=== PATIENT | male | born 1960 | race Caucasian/White ===

== ENCOUNTER 2016-05-24 08:56 | Inpatient (IN) ==
[2016-05-24] MEDS ORDERED: G.I. COCKTAIL PO ONE (10:28)
[2016-05-24] MEDS ORDERED: NS 1,000 ML IV ONE (10:28)
[2016-05-24] MEDS ORDERED: SODIUM CHLORIDE 0.9% INJ ONE ×2 (10:29→15:19)
[2016-05-24] MEDS ORDERED: PROTONIX IV ONE (10:29)
--- NOTE | 2016-05-24 10:33 | PROVIDER DOCUMENTATION ---
HPI-General Adult - General Chief Complaint: General Adult Stated Complaint: PANCREAS PX Time Seen by Provider: 05/24/16 10:07 Source: patient Allergies/Adverse Reactions: Patient Allergies Allergy/AdvReac Type Severity Reaction Status Date / Time No Known Allergies Allergy Verified 05/24/16 09:12 Home Medications: Pantoprazole [Protonix] 40 mg PO DAILY 05/24/16 - History of Present Illness -Gen Adult Nature of Presenting Problems: Pt. is 56 yom that presents with c/o epigastric pain and states it is his pancreas. Pt. reports he has chronic pancreas problems and this has been going on for three days this episode. Pt. reports he lives in [place] but is here visiting a relative. Pt. states the pain is burning and he denies any N/V or fever. Location of Pain/Injury: reports: abdomen. denies: head, face, mouth, neck, chest, upper extremity, hand(s), back, pelvis, genitalia, lower extremity, feet , upper body, lower body, generalized Pain Radiation: reports: epigastric Quality of Pain: reports: burning. denies: aching, cramping, dull, fullness, indigestion, pressure, sharp, stabbing, tearing, throbbing, tightness Severity: reports: moderate. denies: mild, severe Onset/Duration: reports: gradual, 3 days ago Timing: reports: still present, constant. denies: improving, gone now, resolved prior to arrival, intermittent, changing over time, getting worse Context/Activities at Onset: reports: none. denies: recent emotional stress, recent physical stress, recent trauma history, possible bad food, cold exposure , out of country travel Modifying Factors: improves with: nothing Associated Symptoms: reports: heartburn. denies: anxiety, arm pain, back/neck pain, chest pain, constipation, cough, diaphoresis, diarrhea, dizziness, EENT symptoms, fatigue, fever/chills, genitourinary problems, headaches, joint pain, loss of appetite, malaise, muscle aches, sinus congestion/drainage, nausea, rash , seizure, shortness of breath, sensory/motor loss, pain with inspiration, swelling/mass in abdomen, syncope, vomiting, weakness, trouble walking Similar Symptoms Previously?: Yes Recently seen or treated by another doctor?: No Review of Systems - Adult - REVIEW OF SYSTEMS - ADULT Constitutional: reports: see HPI. denies: chills, fever, fatique Eyes: reports: see HPI. denies: discharge, blurred vision, double vision Ears, Nose, Mouth & Throat: reports: see HPI. denies: ear discharge, ear pain, hearing loss, nose pain, loose teeth, mouth/dental pain, throat pain, throat swelling Cardiovascular: reports: see HPI. denies: chest pain, irregular heart rate, orthopnea, syncope Respiratory: reports: see HPI. denies: chronic cough, cough, dyspnea on exertion, pleurisy, shortness of breath, wheezing Gastrointestinal: reports: see HPI, abdominal pain. denies: hematemesis, constipation, difficulty swallowing, frequent heartburn, nausea, vomiting Genitourinary: reports: see HPI. denies: dysuria, discharge, frequent UTI's, hematuria, hesitency, urgency Musculoskeletal: reports: see HPI. denies: bone pain, joint pain, joint swelling, muscle aches, neck pain Integumentary: reports: see HPI. denies: hives, itching, rash, skin thickening Neurological: reports: see HPI. denies: ataxia, dizziness/vertigo, headache/ migraines, numbness, seizure, tremors Psychiatric: reports: see HPI. denies: anxiety, depression, emotional problems , insomnia, panic attacks, suicidal thoughts Past History - Adult - PAST MEDICAL HISTORY-ADULT Review of Records: reports: Old Records Reviewed, Nursing Assessment Review, Medications Reviewed, Social history reviewed & non-contributory. Physical Exam-General - PHYSICAL EXAM-ADULT Initial Vital Signs Reviewed: Yes - CONSTITUTIONAL General Appearance: alert, mild distress, thin. negative: obese, anxious, lethargic, slow to respond, obtunded, combative - EYES Eyes: PERRL/EOMI, pink conjunctivae. negative: conjuctival exudate, photophobia , subconjunctival hemorrhage - HEAD, EARS, NOSE, MOUTH & THROAT HENMT: normocephalic/atraumatic, moist mucous membranes. negative: angioedema, frontal tenderness, maxillary tenderness - NECK Neck: non-tender, full range of motion, supple, normal inspection. negative: lymphadenopathy, trachial deviation, thyromegaly - RESPIRATORY Respiratory: lungs clear, normal breath sounds. negative: crackles, rales, rhonchi, stridor, wheezing - CARDIOVASCULAR Cardiovascular: normal peripheral pulses, regular rate, rhythm, no edema, no JVD , no murmur. negative: extra beats, friction rub, irregularly irregular - CHEST (BREASTS) Chest/Breast: deferred - GASTROINTESTINAL (ABDOMEN) Abdominal Exam: normal bowel sounds, soft, tenderness (epigastric). negative: distended, guarding, rigid, rebound, hernia, mass - GENITOURINARY Male Genitalia: deferred Rectal Exam: deferred Hemoccult Exam: deferred - LYMPHATIC Lymphatic: no adenopathy. negative: axilla node tender, cervical node tenderness - MUSCULOSKELETAL Back Exam: normal inspection, no CVA tenderness, no vertebral tenderness. negative: ecchymosis, muscle spasm, vertebral tenderness Extremity: normal range of motion, non-tender, normal gait, normal inspection. negative: deformity, erythema, inflammation, swelling, tenderness Peripheral Pulses: radial (R): 2+, radial (L): 2+ - SKIN Integumentary: normal color, normal turgor, warm/dry. negative: cyanosis, diaphoresis, ecchymosis, erythema, jaundice, mottled, pallor, petechiae, purpura , rash, swelling, tenderness - NEUROLOGIC Neurologic: grossly normal, no motor/sensory deficits. negative: aphasia, facial droop, focal weakness, motor weakness, sensory deficit - PSYCHIATRIC Psych/Mental Status: normal mood/affect, normal thought content, normal thought process, oriented x 3. negative: anxious, paranoid, tearful Progress - PLAN OF CARE/RESULTS Progress/Plan/Lab Results: Discussed results and plan of care with patient. Patient agrees with plan and verbalizes understanding. Vital Signs Temp Pulse Resp BP Pulse Ox 05/24/16 09:09 98.0 F 100 H 18 150/85 97 No Known Allergies Allergy (Verified 05/24/16 09:12) Pantoprazole [Protonix] 40 mg PO DAILY 05/24/16 Laboratory 05/24/16 05/24/16 05/24/16 10:54 10:54 10:50 WBC RBC Hgb Hct MCV MCH MCHC RDW Std Deviation Plt Count MPV Immature Gran % (Auto) Neut % (Auto) Lymph % (Auto) [place] % (Auto) Eos % (Auto) Baso % (Auto) Immature Gran # (Auto) Neut # (Auto) Lymph # (Auto) [place] # (Auto) Eos # (Auto) Baso # (Auto) Sodium 140 Potassium 4.0 Chloride 104 Carbon Dioxide 28 Anion Gap 8 BUN 8 Creatinine 0.7 Estimated GFR/1.73 m2 > 60 BUN/Creatinine Ratio 11 Glucose 113 H Calculated Osmolality 279 Calcium 9.1 Total Bilirubin 0.30 AST 10 ALT 9 L Alkaline Phosphatase 78 Total Protein 7.3 Albumin 3.9 Globulin 3.0 Albumin/Globulin Ratio 1.0 Amylase 142 Lipase 139 H Urine Source CLEAN CATCH Urine Color YELLOW Urine Clarity CLEAR Urine pH 6.5 Ur Specific [place] 1.015 Urine Protein TRACE A Urine Ketones NEGATIVE Urine Blood 2+ A Urine Nitrite NEGATIVE Urine Bilirubin NEGATIVE Urine Urobilinogen NORMAL Urine Microscopic RBC <10 Urine WBC TRACE A Urine Microscopic WBC 5-10 Ur Epithelial Cells <10 Urine Bacteria 1+ Urine Glucose NEGATIVE Urine Opiates Screen NONE DETECTED Ur Oxycodone Screen NONE DETECTED Urine Methadone Screen NONE DETECTED Ur Barbituates Screen NONE DETECTED Ur Tricyclics Screen NONE DETECTED Ur Phencyclidine Scrn NONE DETECTED Ur Amphetamines Screen NONE DETECTED U Methamphetamines Scrn NONE DETECTED Urine MDMA Screen NONE DETECTED U Benzodiazepines Scrn NONE DETECTED Urine Cocaine Screen NONE DETECTED U Cannabinoids Screen NONE DETECTED 05/24/16 10:50 WBC 12.32 H RBC 5.02 Hgb 15.8 Hct 47.0 MCV 93.6 MCH 31.5 H MCHC 33.6 RDW Std Deviation 13.7 Plt Count 299 MPV 10.1 Immature Gran % (Auto) 0.2 Neut % (Auto) 81.0 H Lymph % (Auto) 11.5 L [place] % (Auto) 5.5 Eos % (Auto) 1.5 Baso % (Auto) 0.3 Immature Gran # (Auto) 0.02 Neut # (Auto) 9.98 H Lymph # (Auto) 1.42 [place] # (Auto) 0.68 H Eos # (Auto) 0.18 Baso # (Auto) 0.04 Sodium Potassium Chloride Carbon Dioxide Anion Gap BUN Creatinine Estimated GFR/1.73 m2 BUN/Creatinine Ratio Glucose Calculated Osmolality Calcium Total Bilirubin AST ALT Alkaline Phosphatase Total Protein Albumin Globulin Albumin/Globulin Ratio Amylase Lipase Urine Source Urine Color Urine Clarity Urine pH Ur Specific [place] Urine Protein Urine Ketones Urine Blood Urine Nitrite Urine Bilirubin Urine Urobilinogen Urine Microscopic RBC Urine WBC Urine Microscopic WBC Ur Epithelial Cells Urine Bacteria Urine Glucose Urine Opiates Screen Ur Oxycodone Screen Urine Methadone Screen Ur Barbituates Screen Ur Tricyclics Screen Ur Phencyclidine Scrn Ur Amphetamines Screen U Methamphetamines Scrn Urine MDMA Screen U Benzodiazepines Scrn Urine Cocaine Screen U Cannabinoids Screen Orders Category Date Time Status Saline Loc NOW Care 05/24/16 10:[address] ABD/PELVIS W/ IV CONT ONLY [CT] Stat Exams 05/24/16 13:02 Ordered ALCOHOL BLOOD Stat Lab 05/24/16 13:02 Ordered AMYLASE [CHEM] Stat Lab 05/24/16 10:50 Completed CBC WITH ELECTRONIC DIFF [HEME] Stat Lab 05/24/16 10:50 Completed COMPREHENSIVE METABOLIC PANEL [CHEM] Stat Lab 05/24/16 10:50 Completed LIPASE [CHEM] Stat Lab 05/24/16 10:[address] [URINALYSIS] Stat Lab 05/24/16 10:54 Completed URINE DRUG SCREEN PL Stat Lab 05/24/16 10:54 Completed URINE MICROSCOPIC [URINALYSIS] Stat Lab 05/24/16 10:54 Completed 0.9% Sodium Chloride Inj [Ns] 1,000 ml Med 05/24/16 10:28 Discontinued IV 999 mls/hr Hydromorphone [Dilaudid] Med 05/24/16 12:36 Discontinued 1 mg IV NOW ONE Lido/Burks Alk/Al&mg Hydrox [G.i. Cocktail] Med 05/24/16 10:28 Discontinued 30 ml PO NOW ONE Ondansetron [Zofran] Med 05/24/16 12:36 Discontinued 4 mg IV NOW ONE Pantoprazole [Protonix] Med 05/24/16 10:29 Discontinued 40 mg IV NOW ONE Sodium Chloride 0.9% Med 05/24/16 10:29 Discontinued 10 ml INJ NOW ONE Laboratory Tests 05/24/16 05/24/16 05/24/16 10:50 10:50 10:54 WBC 12.32 H RBC 5.02 Hgb 15.8 Hct 47.0 MCV 93.6 MCH 31.5 H MCHC 33.6 RDW Std Deviation 13.7 Plt Count 299 MPV 10.1 Immature Gran % (Auto) 0.2 Neut % (Auto) 81.0 H Lymph % (Auto) 11.5 L [place] % (Auto) 5.5 Eos % (Auto) 1.5 Baso % (Auto) 0.3 Immature Gran # (Auto) 0.02 Neut # (Auto) 9.98 H Lymph # (Auto) 1.42 [place] # (Auto) 0.68 H Eos # (Auto) 0.18 Baso # (Auto) 0.04 Sodium 140 Potassium 4.0 Chloride 104 Carbon Dioxide 28 Anion Gap 8 BUN 8 Creatinine 0.7 Estimated GFR/1.73 m2 > 60 BUN/Creatinine Ratio 11 Glucose 113 H Calculated Osmolality 279 Calcium 9.1 Total Bilirubin 0.30 AST 10 ALT 9 L Alkaline Phosphatase 78 Total Protein 7.3 Albumin 3.9 Globulin 3.0 Albumin/Globulin Ratio 1.0 Amylase 142 Lipase 139 H Urine Source CLEAN CATCH Urine Color YELLOW Urine Clarity CLEAR Urine pH 6.5 Ur Specific [place] 1.015 Urine Protein TRACE A Urine Ketones NEGATIVE Urine Blood 2+ A Urine Nitrite NEGATIVE Urine Bilirubin NEGATIVE Urine Urobilinogen NORMAL Urine Microscopic RBC <10 Urine WBC TRACE A Urine Microscopic WBC 5-10 Ur Epithelial Cells <10 Urine Bacteria 1+ Urine Glucose NEGATIVE Urine Opiates Screen Ur Oxycodone Screen Urine Methadone Screen Ur Barbituates Screen Ur Tricyclics Screen Ur Phencyclidine Scrn Ur Amphetamines Screen U Methamphetamines Scrn Urine MDMA Screen U Benzodiazepines Scrn Urine Cocaine Screen U Cannabinoids Screen 05/24/16 10:54 WBC RBC Hgb Hct MCV MCH MCHC RDW Std Deviation Plt Count MPV Immature Gran % (Auto) Neut % (Auto) Lymph % (Auto) [place] % (Auto) Eos % (Auto) Baso % (Auto) Immature Gran # (Auto) Neut # (Auto) Lymph # (Auto) [place] # (Auto) Eos # (Auto) Baso # (Auto) Sodium Potassium Chloride Carbon Dioxide Anion Gap BUN Creatinine Estimated GFR/1.73 m2 BUN/Creatinine Ratio Glucose Calculated Osmolality Calcium Total Bilirubin AST ALT Alkaline Phosphatase Total Protein Albumin Globulin Albumin/Globulin Ratio Amylase Lipase Urine Source Urine Color Urine Clarity Urine pH Ur Specific [place] Urine Protein Urine Ketones Urine Blood Urine Nitrite Urine Bilirubin Urine Urobilinogen Urine Microscopic RBC Urine WBC Urine Microscopic WBC Ur Epithelial Cells Urine Bacteria Urine Glucose Urine Opiates Screen NONE DETECTED Ur Oxycodone Screen NONE DETECTED Urine Methadone Screen NONE DETECTED Ur Barbituates Screen NONE DETECTED Ur Tricyclics Screen NONE DETECTED Ur Phencyclidine Scrn NONE DETECTED Ur Amphetamines Screen NONE DETECTED U Methamphetamines Scrn NONE DETECTED Urine MDMA Screen NONE DETECTED U Benzodiazepines Scrn NONE DETECTED Urine Cocaine Screen NONE DETECTED U Cannabinoids Screen NONE DETECTED - CONSULTS/PCP/HOSPITALIST Notification #1 *Consult/PCP/Hospitalist*: Dr. Palencia Time Discussed: 13:03 Reason/Comments: Admission Consult Disposition: Admit Departure - Departure Time of Disposition Order: 12:52 DIAGNOSIS: Pancreatitis, chronic Qualifiers: Pancreatitis type: idiopathic Qualified Code(s): K86.1 - Other chronic pancreatitis Disposition: ADMITTED INPATIENT 09 Certified Medical Emergency: Emergent Condition: Stable Referrals: None,PCP [Primary Care Provider] - Attestation - Physician/ Mid-level Attestation Patient care was provided by Mid-level provider (HEAD ANIMAL TRAINER/PA):: Yes Mid-level provider:: Amira Fitzgerald Mid-level documentation review:: The Mid-level provider documentation, treatment plan and medical decision making was reviewed by the physician who agrees with all treatment and medical decision making by the MLP.
[2016-05-24 10:52] LABS: MANUAL DIFF NEEDED? NO
[2016-05-24 11:00] LABS: BASO% 0.3 % (0.0-0.8); EOS# 0.18 X1000 (0.0-0.7); EOS% 1.5 % (0.0-10.0); HEMOGLOBIN 15.8 g/dL (14.0-18.0); IMM GRAN# 0.02 X1000 (0.0-0.04); IMM GRAN% 0.2 % (0.0-0.5); LYMPH# 1.42 X1000 (1.2-3.4); LYMPH% 11.5 % (20.5-51.1); MCH 31.5 PG (27-31); MCHC 33.6 g/dL (33-37); MCV 93.6 FL (81-99); MONO# 0.68 X1000 (0.11-0.59); MONO% 5.5 % (1.7-9.3); MPV 10.1 FL (7.4-10.4); PLT 299 X1000 (130-400); RBC 5.02 XMIL (4.7-6.1)
[2016-05-24 11:07] LABS: URINE SOURCE CLEAN CATCH
[2016-05-24 11:12] LABS: BILIRUBIN URINE NEGATIVE (NEGATIVE); BLOOD URINE 2+ (NEGATIVE); CLARITY CLEAR (CLEAR); COLOR YELLOW; GLUCOSE URINE NEGATIVE (NEGATIVE); LEUKOCYTES URINE TRACE (NEGATIVE); NITRITE URINE NEGATIVE (NEGATIVE); PH URINE 6.5; PROTEIN URINE TRACE mg/dL (NEGATIVE); SP GRAVITY URINE 1.015; URINE MICROSCOPIC NEEDED? YES; UROBILINOGEN URINE NORMAL
[2016-05-24 11:14] LABS: UR AMPHETAMINES QUAL NONE DETECTED (NONE DETECT); UR BARBITUATES QUAL NONE DETECTED (NONE DETECT); UR BENZODIAZEPIN QUAL NONE DETECTED (NONE DETECT); UR CANNABINOIDS QUAL NONE DETECTED (NONE DETECT); UR COCAINE QUAL NONE DETECTED (NONE DETECT); UR MDMA QUAL NONE DETECTED (NONE DETECT); UR METHADONE QUAL NONE DETECTED (NONE DETECT); UR METHAMPHETAMINE QUAL NONE DETECTED (NONE DETECT); UR OPIATES QUAL NONE DETECTED (NONE DETECT); UR OXYCODONE QUAL NONE DETECTED (NONE DETECT); UR PCP QUAL NONE DETECTED (NONE DETECT); UR TCA QUAL NONE DETECTED (NONE DETECT)
[2016-05-24 12:00] LABS: AGAP 8; ALBUMIN 3.9 g/dL (3.5-5.0); ALKALINE PHOSPHATASE 78 U/L (32-122); AMYLASE 142 U/L (20-200); BUN 8 mg/dL (8-22); CALCIUM 9.1 mg/dL (8.8-10.2); CHLORIDE 104 mmol/L (98-107); COSMO 279; GOT 10 U/L (10-34); GPT 9 U/L (10-44); LIPASE 139 U/L (13-60); SODIUM 140 mmol/L (136-145); TCO2 28 mmol/L (25-35); TOTAL PROTEIN 7.3 g/dL (6.3-8.3)
[2016-05-24 12:02] LABS: URINE EPITHELIAL CELLS <10 /HPF (<10); URINE RBC <10 /HPF (<10)
[2016-05-24] MEDS ORDERED: ZOFRAN IV ONE (12:36)
[2016-05-24] MEDS ORDERED: DILAUDID IV ONE (12:36)
--- NOTE | 2016-05-24 15:11 | Diag Imaging Result Document ---
PROCEDURE NAME: CT ABD/PELVIS W/ IV CONT ONLY - 05/24/2016 CT ABDOMEN AND PELVIS WITH IV CONTRAST: COMPARISON: None available. FINDINGS: There are calcified granulomata in the spleen. There is a tiny low-dense focus in the right hepatic lobe that probably represents a tiny cyst but is too small to accurately characterize. The liver is unremarkable, otherwise. The gallbladder appears normal. There are inflammatory changes surrounding the head of the pancreas as well as pancreatic head calcification suggesting acute on chronic pancreatitis. The head of the pancreas is somewhat heterogeneous. Followup CT is recommended after treatment to assure that there is no underlying mass. There appears to be mild dilation at the confluence of the pancreatic duct and common bile duct. There is a tubular structure in the epigastric region that may represent a thrombosed varix. It is nonspecific. Consider evaluation with ultrasound. An early arterial phase CT may also be helpful. There are few colonic diverticula, but there is no evidence of diverticulitis. There is no free abdominal gas or other evidence of bowel obstruction. The remainder of the solid viscera of the abdomen and pelvis and the remainder of the GI tract is essentially unremarkable. IMPRESSION: 1. Prominence of the pancreatic head with calcifications and surrounding inflammatory change suggesting acute on chronic pancreatitis. Followup CT is recommended after treatment to assure that there is no underlying mass. 2. Tubular structure with what appears to be a filling defect in the epigastric region that may represent a thrombosed varix. Please see above discussion.
[2016-05-24] MEDS ORDERED: LR 1,000 ML IV ONE (15:19)
[2016-05-24] MEDS: MORPHINE IV PRN ×2 (16:34→18:51)
[2016-05-24] MEDS: PROTONIX IV SCH (17:35)
--- NOTE | 2016-05-24 17:52 | HISTORY AND PHYSICAL ---
CHIEF COMPLAINT: "I have pancreatitis." HISTORY OF PRESENT ILLNESS: This is a 56-year-old male with a history of alcoholic pancreatitis, alcoholism and tobacco abuse. He presented to the emergency room complaining of epigastric pain and stating that he knows he has got recurrent pancreatitis, he needs admission. He denies any nausea and vomiting. He does state that this pain started 3 days ago. This is his normal pancreatic pain. He was found to have a white count of 12.3, with a lipase of 139. CT scan revealed a prominence of the pancreatic head with calcifications with surrounding inflammatory changes suggesting acute on chronic pancreatitis. Followup CT is recommended after treatment to assure there is no underlying mass. He is also known to have a tubular structure with what appears to be a filling defect in the epigastric region that may represent a thrombosed varix. The patient denies any prior diagnoses esophageal varices. He denies ever undergoing an EGD to evaluate for this. Of note, the patient lives in [place] and he normally is seen at [facility] for this, but he states he came here today because he up here with family members. We will obtain records from [facility]. PAST MEDICAL HISTORY: Pancreatitis, alcohol abuse and tobacco abuse. PAST SURGICAL HISTORY: Appendectomy. SOCIAL HISTORY: He smokes about a pack a day. He drank a pint to a 5th daily of whiskey for many years up to about November. She states since November he drinks whiskey "every now and then". His last drink was 2 weeks ago. ALLERGIES: No known drug allergies. HOME MEDICATIONS: Protonix 40 mg p.o. daily. REVIEW OF SYSTEMS: A 14 point review of systems was discussed with patient, with pertinent positives being epigastric pain and nausea. He denied vomiting, constipation, diarrhea, black or bloody vomitus, black or bloody stools, chest pain, palpitations, PND, orthopnea, hematuria, dysuria, frequency, urgency. PHYSICAL EXAMINATION: GENERAL: This is a 56-year-old male, who is sitting on side of the bed with no distress. VITAL SIGNS: Blood pressure is 123/94 with a heart rate of 72, respirations are 18, temperature is 98 degrees with a room air saturation of 96-97%. HEENT: Head is normocephalic, atraumatic. Pupils equal, round, react to light. EOMS are intact. Sclerae anicteric. Mucous membranes are dry. NECK: Supple with trachea midline. CARDIOVASCULAR: Regular rate and rhythm. S1, S2 appreciated. PULMONARY: Breath sounds are clear. No increased work of breathing noted. GASTROINTESTINAL: Abdomen is soft, nontender, nondistended with bowel sounds in all 4 quadrants. BACK: No CVAT. No spine tenderness. MUSCULOSKELETAL: Good range of motion of joints. EXTREMITIES: No clubbing, cyanosis, or edema. Calves are nontender. Pulses are palpable x4. NEUROLOGIC: He is alert and oriented x3. DIAGNOSTICS: WBC is 12.3, with a hemoglobin of 15.8, hematocrit 47 and platelets of Sodium is 140, potassium 4, BUN 8, creatinine 0.7 with a glucose of 113. His AST is 10. ALT is 9. Total bilirubin 0.30 with alkaline phosphatase of 78, lipase of 139. Urine drug screen is negative with blood alcohol 0. CT scan as stated in the HPI. ASSESSMENT AND PLAN: 1. Epigastric pain. 2. Acute on chronic pancreatitis, presumed alcoholic. 3. Leukocytosis. PLAN: He will be admitted to the hospital. He will remain nothing per oral. We will repeat labs in the morning. We will continue with hydration with lactated ringers, giving morphine for pain and Zofran for nausea. We will give Protonix to 24 hours. We will obtain an ultrasound of the abdomen to evaluate his liver as well as the questionable thrombosed varix per question the CT read. We will his obtain his records from [facility]. Further treatments pending hospital course. Dictated by [employer] for Baljeet Palencia MD
[2016-05-24] MEDS ORDERED: MORPHINE IV PRN (18:49)
[2016-05-24] MEDS: ZOFRAN IV PRN (22:04)
[2016-05-25] MEDS: DILAUDID IV PRN ×6 (02:01→18:41)
[2016-05-25 08:06] LABS: HEMOGLOBIN 14.6 g/dL (14.0-18.0); MCH 31.1 PG (27-31); MCHC 33.2 g/dL (33-37); MCV 93.8 FL (81-99); MPV 10.2 FL (7.4-10.4); RBC 4.69 XMIL (4.7-6.1)
[2016-05-25 08:26] LABS: AGAP 8; ALBUMIN 3.9 g/dL (3.5-5.0); ALKALINE PHOSPHATASE 75 U/L (32-122); BUN 7 mg/dL (8-22); CALCIUM 9.2 mg/dL (8.8-10.2); CHLORIDE 98 mmol/L (98-107); COSMO 274; GOT 9 U/L (10-34); GPT 8 U/L (10-44); LIPASE 86 U/L (13-60); POTASSIUM 3.9 mmol/L (3.5-5.1); SODIUM 138 mmol/L (136-145); TCO2 31 mmol/L (25-35); TOTAL PROTEIN 6.6 g/dL (6.3-8.3)
[2016-05-25 08:27] LABS: AMYLASE 239 U/L (20-200); TRIGLYCERIDES 175 mg/dL (39-160)
[2016-05-25] MEDS: NS 1,000 ML IV SCH (09:47)
[2016-05-25] MEDS: TYLENOL PO PRN (10:46)
[2016-05-25] MEDS: M.V.I.-12 10 ML, FOLIC ACID 1 MG, MAGNESIUM SULFATE 1 GM, THIAMINE 100 MG in NS 1,000 ML IV SCH (12:23)
[2016-05-25] MEDS: ZOFRAN IV PRN (12:29)
[2016-05-25] MEDS ORDERED: NICODERM PATCH TD ONE (13:42)
--- NOTE | 2016-05-25 15:04 | Diag Imaging Result Document ---
PROCEDURE NAME: US ABDOMEN-COMPLETE - 05/25/2016 PORTABLE ABDOMEN ULTRASOUND: INDICATION: Questionable thrombosed varix. Epigastric pain. FINDINGS: There is limited visualization of the pancreas due to bowel gas artifact. The gallbladder is within normal limits. No gallbladder wall thickening or pericholecystic fluid. No cholelithiasis. The portal vein is patent with hepatopetal flow. There is a 1.7 x 1.5 cm hypoechoic area adjacent to the pancreatic head. This may represent a peripancreatic lymph node. There is a vascular structure posterior to the pancreas with venous flow measuring 5.4 x 4.2 x 1.4 cm. This may correspond with the questionable varix noted on recent CT scan of the abdomen. The left renal contour is irregular suggesting parenchymal scarring. No mass is identified within the left kidney when compared with the CT scan. The common bile duct measures 6 mm. There is no hydronephrosis. The pancreatic head is irregular with calcifications. IMPRESSION: 1. No cholelithiasis. 2. Tubular venous structure posterior to the pancreas is noted and thought to represent a dilated vein, varix, or collateral. 3. Probable peripancreatic lymph node. 4. Irregular pancreatic head with calcifications, which is nonspecific in appearance, but could be related to pancreatic mass or focal pancreatitis. Follow up is suggested.
[2016-05-25] MEDS: PROTONIX IV SCH (17:06)
--- NOTE | 2016-05-25 21:49 | PROGRESS NOTE ---
DATE: 05/25/2016 SUBJECTIVE: Patient notes he is not any better. He is still having nausea and vomiting. He is still having epigastric abdominal pain if he attempts to drink anything. He states the pain is consistent, unchanged. He denies any fevers or chills. Denies hematuria, hematochezia, melena. OBJECTIVE: Vital Signs: Temperature 98.2, pulse 78, respiratory rate 20, blood pressure 140/84. General: The patient is well-developed, well-nourished, currently in no real respiratory distress. Speech is regular. Memory is intact. Neck: Supple. Cardiovascular : Regular rate. Chest: Clear. Abdomen: Soft, tender epigastric with minimal palpation, positive bowel sounds. Extremities: Moves all extremities. Neurologic: No changes. DIAGNOSTIC DATA: CBC and CMP essentially normal. Amylase 239. Lipase is better at 86. ASSESSMENT: 1. Acute pancreatitis likely secondary to chronic alcoholism, stable. 2. Leukocytosis. PLAN: We will continue to keep NPO and continue to follow. Further orders as needed. Ultrasound reviewed. We will continue to follow. Does have irregular pancreatic head with calcifications that could be related to a mass or just focal pancreatitis. We will need to follow outpatient with a repeat scan. [facility]
[2016-05-26] MEDS: DILAUDID IV PRN ×6 (02:43→20:13)
--- NOTE | 2016-05-26 09:24 | PROGRESS NOTE ---
DATE: 05/26/2016 SUBJECTIVE: Patient feels like his pain is worse this morning. He does note that he has done this several times in the past. States that he would like to drink something but he knows that he cannot currently. Denies any diarrhea, melena, hematochezia. PHYSICAL EXAMINATION: Vital Signs: Temperature 97, pulse 91, respiratory rate 20, BP 144/97. General: Patient is well developed, well nourished. Currently in no respiratory distress. He is awake, alert. Neck: Supple. CV: Regular rate. Chest: Clear. Abdomen: Soft. Tender in the epigastric region. Extremities: Moves all extremities. Neurologic: No changes. DIAGNOSTIC DATA: Pending. ASSESSMENT: 1. Acute on chronic pancreatitis. 2. Chronic alcoholism. Patient notes that he has not had anything to drink recently. States it has been approximately 2 weeks since he has drank. 3. Leukocytosis, improved. PLAN: We will add OxyContin ER twice a day. We will continue Dilaudid. We will continue to keep him NPO. Further orders as needed.
[2016-05-26] MEDS: OXYCONTIN PO SCH ×2 (11:02→13:02)
[2016-05-26] MEDS: M.V.I.-12 10 ML, FOLIC ACID 1 MG, MAGNESIUM SULFATE 1 GM, THIAMINE 100 MG in NS 1,000 ML IV SCH (15:36)
[2016-05-26] MEDS ORDERED: STERILE WATER INJ. ONE (17:12)
[2016-05-26] MEDS: PROTONIX IV SCH (17:24)
[2016-05-26] MEDS: NICODERM PATCH TD SCH (17:30)
[2016-05-27] MEDS: OXYCONTIN PO SCH (00:22)
[2016-05-27] MEDS: DILAUDID IV PRN ×6 (02:06→23:06)
[2016-05-27 06:13] LABS: HEMATOCRIT 41.6 % (42.0-52.0); HEMOGLOBIN 13.8 g/dL (14.0-18.0); MCH 30.8 PG (27-31); MCHC 33.2 g/dL (33-37); MCV 92.9 FL (81-99); MPV 10.3 FL (7.4-10.4); RBC 4.48 XMIL (4.7-6.1)
[2016-05-27 07:01] LABS: AGAP 9; ALBUMIN 3.8 g/dL (3.5-5.0); ALKALINE PHOSPHATASE 68 U/L (32-122); AMYLASE 281 U/L (20-200); BUN 9 mg/dL (8-22); CALCIUM 8.7 mg/dL (8.8-10.2); CHLORIDE 100 mmol/L (98-107); COSMO 270; GOT 12 U/L (10-34); GPT 8 U/L (10-44); LIPASE 191 U/L (13-60); POTASSIUM 3.9 mmol/L (3.5-5.1); SODIUM 137 mmol/L (136-145); TCO2 29 mmol/L (25-35); TOTAL PROTEIN 6.6 g/dL (6.3-8.3)
[2016-05-27] MEDS ORDERED: SODIUM CHLORIDE 0.9% INJ SCH (07:30)
[2016-05-27] MEDS: NICODERM PATCH TD SCH ×2 (07:46→08:03)
[2016-05-27] MEDS: NS 1,000 ML IV SCH ×2 (07:56→08:00)
[2016-05-27] MEDS: M.V.I.-12 10 ML, FOLIC ACID 1 MG, MAGNESIUM SULFATE 1 GM, THIAMINE 100 MG in NS 1,000 ML IV SCH (11:10)
--- NOTE | 2016-05-27 11:47 | PROGRESS NOTE ---
DATE: 05/27/2016 SUBJECTIVE: The patient still complains of frequent pain requiring Dilaudid every 3 hours, still asking to drink fluids or eat. Denies any diarrhea, melena, hematochezia. OBJECTIVE/PHYSICAL EXAMINATION: Vital signs: Temp 98, pulse 84, respiratory rate 18, BP 136/72. General: The patient is well developed and well nourished, currently in no respiratory distress. He is awake, alert, sitting in bed watching television without any apparent issues. HEENT: Normocephalic. Neck: Supple. CV: Regular rate. Chest: Clear. Abdomen: Soft, still moderately tender in the epigastric region. Extremities: Moves all extremities. Neurological: No changes. LABS: WBCs 8, hemoglobin and hematocrit 13 and 40. CMP normal. Calcium 8.7. Amylase elevated at 281, lipase elevated at 191. ASSESSMENT: 1. Acute on chronic pancreatitis. His amylase and lipase are actually mildly elevated compared to yesterday. 2. Chronic alcoholism. Again discussed with patient the perils of drinking. 3. Leukocytosis. PLAN: Will stop the patient's OxyContin as his amylase and lipase are actually elevated after starting this yesterday, and certainly if they are connected will continue to keep n.p.o., continue to follow.
[2016-05-27] MEDS: PROTONIX IV SCH (16:40)
[2016-05-28] MEDS: DILAUDID IV PRN ×6 (03:26→22:13)
[2016-05-28] MEDS: NICODERM PATCH TD SCH ×2 (07:38→15:05)
[2016-05-28] MEDS: M.V.I.-12 10 ML, FOLIC ACID 1 MG, MAGNESIUM SULFATE 1 GM, THIAMINE 100 MG in NS 1,000 ML IV SCH (11:42)
[2016-05-28] MEDS: NS 1,000 ML IV SCH ×2 (14:15→14:16)
--- NOTE | 2016-05-28 16:02 | PROGRESS NOTE ---
DATE: 05/28/2016 SUBJECTIVE: Patient has no focal complaints. OBJECTIVE: Vital signs: Blood pressure 145/97, heart rate of 83, respiratory rate 18, temperature 97.8 degrees, 97% on room air. Cardiovascular: Regular rate and rhythm. Pulmonary: Bilateral breath sounds. Clear to auscultation. GI: Soft, nontender, nondistended. Bowel sounds are positive. DATA: Amylase and lipase were actually up yesterday. I do not have labs today. ASSESSMENT AND PLAN: 1. Acute on chronic pancreatitis. Will continue his medications, NPO status, IV fluids and we will continue to follow. If his numbers are continuing to rise may elect to transfer him for GI evaluation. 2. History of alcohol abuse. I think he is outside the window for any need of any withdrawal medications. I am going to stop his banana bag and follow. DISPOSITION: Pending resolution of his issues.
[2016-05-28] MEDS: LOVENOX SUBQ SCH (16:34)
[2016-05-28] MEDS: LR 1,000 ML IV SCH ×2 (16:35→17:03)
[2016-05-28] MEDS: SODIUM CHLORIDE 0.9% INJ SCH (16:35)
[2016-05-28] MEDS: PROTONIX IV SCH (16:35)
[2016-05-29] MEDS: DILAUDID IV PRN ×4 (04:56→20:52)
[2016-05-29] MEDS: LR 1,000 ML IV SCH (04:56)
[2016-05-29 06:35] LABS: HEMATOCRIT 46.1 % (42.0-52.0); HEMOGLOBIN 15.4 g/dL (14.0-18.0); MCH 31.2 PG (27-31); MCHC 33.4 g/dL (33-37); MCV 93.5 FL (81-99); MPV 10.3 FL (7.4-10.4); RBC 4.93 XMIL (4.7-6.1)
[2016-05-29 06:48] LABS: AGAP 16; ALKALINE PHOSPHATASE 76 U/L (32-122); AMYLASE 117 U/L (20-200); BUN 8 mg/dL (8-22); CALCIUM 9.5 mg/dL (8.8-10.2); CHLORIDE 101 mmol/L (98-107); COSMO 272; GOT 17 U/L (10-34); GPT 10 U/L (10-44); LIPASE 46 U/L (13-60); POTASSIUM 5.4 mmol/L (3.5-5.1); SODIUM 138 mmol/L (136-145); TCO2 22 mmol/L (25-35); TOTAL PROTEIN 7.6 g/dL (6.3-8.3)
[2016-05-29] MEDS: NICODERM PATCH TD SCH (09:28)
[2016-05-29] MEDS: TYLENOL PO PRN (12:46)
[2016-05-29] MEDS: LOVENOX SUBQ SCH (14:29)
--- NOTE | 2016-05-29 16:27 | PROGRESS NOTE ---
DATE: 05/29/2016 SUBJECTIVE: Patient has no focal complaints. OBJECTIVE: Vital signs: Blood pressure is 100/68, respiratory rate of 18, pulse rate 88, respiratory rate 18, and temperature 98.3 degrees. Cardiovascular: Regular rate and rhythm. Pulmonary: Bilateral breath sounds. Clear to auscultation. GI: Soft, nontender, nondistended. Bowel sounds are positive. Extremities: No clubbing or cyanosis. Lymphatics: No peripheral edema. Neurological: Nonfocal. LABORATORY DATA: Amylase and lipase have normalized thankfully. CBC is normal. CMP and potassium have jumped up to 5.4, which may be related to his potassium infusion. ASSESSMENT AND PLAN: Discharge. Acute on chronic pancreatitis. We will advance diet since he has stabilized. Repeat his labs tomorrow. He has been stabilized. Hyperkalemia probably related to other medications. Alcohol abuse, well with outside window of withdrawal. Obviously cannot give him any further alcohol and we will continue to monitor that. DISPOSITION: Possibly home tomorrow if stable.
[2016-05-29] MEDS: NS 1,000 ML IV SCH (16:42)
[2016-05-29] MEDS: MIRALAX PO SCH (16:42)
[2016-05-29] MEDS: SODIUM CHLORIDE 0.9% INJ SCH (16:43)
[2016-05-29] MEDS: PROTONIX IV SCH (16:43)
[2016-05-30] MEDS: DILAUDID IV PRN ×3 (00:40→10:41)
[2016-05-30] MEDS: NS 1,000 ML IV SCH ×2 (06:01→07:28)
[2016-05-30 06:58] LABS: HEMATOCRIT 42.3 % (42.0-52.0); MCH 30.6 PG (27-31); MCHC 33.1 g/dL (33-37); MCV 92.6 FL (81-99); MPV 10.5 FL (7.4-10.4); RBC 4.57 XMIL (4.7-6.1)
[2016-05-30 07:19] LABS: AGAP 10; ALBUMIN 3.9 g/dL (3.5-5.0); ALKALINE PHOSPHATASE 67 U/L (32-122); AMYLASE 70 U/L (20-200); BUN 5 mg/dL (8-22); CALCIUM 9.3 mg/dL (8.8-10.2); CHLORIDE 101 mmol/L (98-107); COSMO 274; GOT 14 U/L (10-34); GPT 10 U/L (10-44); LIPASE 28 U/L (13-60); POTASSIUM 4.6 mmol/L (3.5-5.1); SODIUM 139 mmol/L (136-145); TCO2 28 mmol/L (25-35); TOTAL PROTEIN 6.9 g/dL (6.3-8.3)
[2016-05-30 08:09] VITALS: BP 114/83
[2016-05-30] MEDS: NICODERM PATCH TD SCH (08:18)
[2016-05-30] MEDS: MIRALAX PO SCH (08:18)
--- NOTE | 2016-05-30 22:21 | DISCHARGE SUMMARY ---
ADMISSION DATE: 05/24/2016 DISCHARGE DATE: 05/30/2016 DIAGNOSES: 1. Epigastric pain. 2. Acute on chronic pancreatitis, presumed alcoholic. 3. Leukocytosis. 4. Hyperkalemia, resolved. RADIOLOGY: 05/24/2016, CT of the abdomen and pelvis revealed findings suggestive of acute on chronic pancreatitis. On 05/25/2016, abdominal ultrasound revealed no cholelithiasis. Tubular venous structure posterior to the pancreas noted, and thought to represent a dilated vein, varix or collateral and a regular pancreatic head with calcifications, nonspecific, but could be related to pancreatic mass or focal pancreatitis. HOSPITAL COURSE: Mr. Grajeda presented to the emergency room complaining of recurring pancreatitis, having right upper quadrant and epigastric pain, which is his normal symptoms. He did have a lipase of 139, with a white count of 12.3. CT did show what was consistent with acute on chronic pancreatitis. He was admitted. He was given IV hydration. White count is down to 6.9. He has been afebrile throughout the hospitalization. Lipase was 139, and it is down to 28 today, with an amylase of 70. He has denied any epigastric pain. He was given a GI soft diet, and he is eating breakfast and lunch at 100% with denying any pain, nausea or vomiting. He did have hyperkalemia with his K going up to 5.4 on the 8th. It is back down to 4.6 today, and it was felt this was more likely related to his other medications. He has had no alcohol withdrawal or DTs throughout the hospitalization. He lives in , and he usually goes to [facility] for this. Records were obtained, and in review of his past scans there, results of the CT and ultrasound are consistent with his previous records. This was discussed with the patient, per myself, as well as, Dr. Palencia, and we have recommended that he be followed up on an outpatient basis. Dr. Palencia did discuss this with Dr. Morales. We will set up an appointment for him to follow up with Dr. Munoz or Dr. Morales prior to his discharge. PHYSICAL EXAMINATION: Cardiovascular: Regular rate and rhythm. S1 and S2 are appreciated. Pulmonary: Breath sounds were clear. No increased work of breathing noted. Gastrointestinal: Abdomen is soft, nontender, nondistended with bowel sounds in all 4 quadrants. Extremities: No clubbing, cyanosis, or edema. Calves are nontender. Pulses are palpable x4. Vital Signs: Blood pressure is 114/83, with a heart rate of 77, respirations are 16, temperature is 98.3 degrees oral, with room air saturation of 99%. DISCHARGE ACTIVITY: As tolerated. DISCHARGE DIET: As tolerated. DISCHARGE MEDICATIONS: Promethazine 25 mg tablets 1 every 6 hours p.r.n. nausea, vomiting, #25 with no refills, [place] 7.5, 1 every 6 hours p.r.n. pain, #25, with no refills, Protonix 40 mg daily. FOLLOWUP: Appointment will be made to follow up with Dr. Morales or Dr. Munoz in the next 1 to 2 weeks. He has been instructed to follow up with his primary care physician in the next 1 to 2 weeks, sooner if needed. He is being discharged home in stable condition. It was discussed with the patient the perils of alcoholism, and recurrent pancreatitis. The patient states that he only drinks "every now and then." At this time, he is not interested in complete alcohol cessation. Dictated by RIO Solitario for Baljeet Palencia MD
== END 2016-05-30 17:01 | disposition home or self-care (01) | DRG 440 ==
LOC: P.ED 08:56 → P.MEDSURG 15:08
PROVIDERS: ATTEND Internal Medicine
DX: K85.20 Alcohol induced acute pancreatitis without necrosis or infection (principal); E87.5 Hyperkalemia; K86.0 Alcohol-induced chronic pancreatitis; F17.210 Nicotine dependence, cigarettes, uncomplicated; Z79.899 Other long term (current) drug therapy; F10.20 Alcohol dependence, uncomplicated
CPT/HCPCS: 36415; 74177; 76700; 80053; 81001; 82150; 83690; 83735; 84478; 85025; 85027; 85651; 86140; 96361; 96374; 96375; C9113; G0477; G0480; J1170; J1650; J2270; J2405; J3411; J3475; J7030; J7120; Q9967; S0164

== ENCOUNTER 2016-08-03 13:53 | Emergency (ER) ==
--- NOTE | 2016-08-03 14:38 | PROVIDER DOCUMENTATION ---
HPI-Abdominal Pain/GI Problem - General Source: patient - History of Present Illness-ABD Abdominal Pain Onset Location: reports: generalized abdomen Pain Radiation: reports: no radiation Quality of Pain: reports: aching Onset/Duration: reports: 2 days ago Timing: reports: still present Activities at Onset: reports: none Exposure to sick contacts?: No Modifying Factors: improves with: nothing Associated Symptoms: reports: denies symptoms Last BM: 24 hours ago Dark Stools Present?: reports: none noticed Rectal Bleeding: reports: none Rectal Pain: reports: none Emesis Description: reports: none Bruising or Bleeding Gums?: No Similar Symptoms Previously?: No Recently seen or treated by another doctor?: No <Gus Fagan - Last Filed: 08/03/16 17:06> <Christiano Simon - Last Filed: 08/03/16 17:13> - General Chief Complaint: Abdominal Pain Stated Complaint: IT'S MY PANCREAS Time Seen by Provider: 08/03/16 14:20 Allergies/Adverse Reactions: Patient Allergies Allergy/AdvReac Type Severity Reaction Status Date / Time No Known Allergies Allergy Verified 05/24/16 09:12 Home Medications: Home Medication List Medication Instructions Recorded Confirmed Last Taken Type Pantoprazole [Protonix] 40 mg PO DAILY 05/24/16 05/24/16 Unknown History Hydrocodone/APAP 7.5 mg/325 mg 1 each PO Q6H PRN PRN #25 tablet 05/30/16 Unknown Rx [[place]-7.5] Promethazine [Phenergan] 25 mg PO Q6H PRN PRN #25 tablet 05/30/16 Unknown Rx Hydrocodone/Acetaminophen [[place] 1 each PO Q12HR #60 tablet 08/03/16 Unknown Rx 10-325 Tablet] Review of Systems - Adult - REVIEW OF SYSTEMS - ADULT Constitutional: denies: chills, fever, night sweats Eyes: denies: discharge, blurred vision, double vision Ears, Nose, Mouth & Throat: denies: ear pain, mouth/dental pain, throat swelling Cardiovascular: denies: chest pain, irregular heart rate, palpitations Respiratory: denies: cough, shortness of breath, wheezing Gastrointestinal: reports: abdominal pain. denies: diarrhea, nausea, vomiting Genitourinary: denies: dysuria, flank pain, hematuria Musculoskeletal: denies: back pain, muscle aches, neck pain Integumentary: denies: hives, itching, rash Neurological: denies: dizziness/vertigo, headache/migraines, loss of balance Psychiatric: denies: anxiety, depression, emotional problems All Other Systems: Reviewed and Negative <Gus Fagan - Last Filed: 08/03/16 17:06> Past History - Adult - PAST MEDICAL HISTORY-ADULT Review of Records: reports: Old Records Reviewed, Nursing Assessment Review, Medications Reviewed Major Childhood Illnesses: reports: denies history Gastrointestinal: reports: pancreatitis - PRIOR SURGERIES/PROCEDURES Surgical/Procedure History: reports: appendectomy - PRIOR HOSPITALIZATIONS Prior Hospitalizations: reports: for similar symptoms - IMMUNIZATION STATUS Childhood Immunizations: See Nurse Assessment Flu Vaccine: See Nurse Assessment - SOCIAL HISTORY Smoking: greater than 1 pack/day Provider spent 3-5 mins advising pt. on dangers of tobacco.: Discussed manners to quit use, and f/u contacts for add'l counseling. Substance Use: none/never Alcohol Use Frequency: sober (former use) Living Situation: alone <Gus Fagan - Last Filed: 08/03/16 17:06> Physical Exam-General - PHYSICAL EXAM-ADULT Initial Vital Signs Reviewed: Yes - CONSTITUTIONAL General Appearance: appears well, alert, no apparent distress - EYES Eyes: PERRL/EOMI, pink conjunctivae, fundi clear, no AV nicking - HEAD, EARS, NOSE, MOUTH & THROAT HENMT: normocephalic/atraumatic, moist mucous membranes, normal ENT inspection - NECK Neck: non-tender, full range of motion, supple, normal inspection - RESPIRATORY Respiratory: chest non-tender, lungs clear, normal breath sounds, no pleuratic chest pain, no respiratory distress, no accessory muscle use - CARDIOVASCULAR Cardiovascular: normal peripheral pulses, regular rate, rhythm, no edema, no gallop, no JVD, no murmur - GASTROINTESTINAL (ABDOMEN) Abdominal Exam: normal bowel sounds, soft, no organomegaly, no pulsatile mass, tenderness - MUSCULOSKELETAL Back Exam: normal inspection, no CVA tenderness, no vertebral tenderness Extremity: normal range of motion, non-tender, normal gait, normal inspection, no pedal edema, no calf tenderness - SKIN Integumentary: normal color, normal turgor, warm/dry - PSYCHIATRIC Psych/Mental Status: normal mood/affect, normal thought content, normal thought process, oriented x 3 <Gus Fagan - Last Filed: 08/03/16 17:06> Progress - PLAN OF CARE/RESULTS Progress/Plan/Lab Results: Laboratory Results - last 24 hr 08/03/16 08/03/16 08/03/16 14:25 14:25 14:40 WBC RBC Hgb Hct MCV MCH MCHC RDW Std Deviation Plt Count MPV Immature Gran % (Auto) Neut % (Auto) Lymph % (Auto) [place] % (Auto) Eos % (Auto) Baso % (Auto) Immature Gran # (Auto) Neut # (Auto) Lymph # (Auto) [place] # (Auto) Eos # (Auto) Baso # (Auto) Sodium 138 Potassium 3.9 Chloride 101 Carbon Dioxide 27 Anion Gap 10 BUN 9 Creatinine 0.6 L Estimated GFR/1.73 m2 > 60 BUN/Creatinine Ratio 15 Glucose 116 H Calculated Osmolality 275 Calcium 9.0 Total Bilirubin < 0.15 L AST 10 ALT 9 L Alkaline Phosphatase 72 Total Protein 7.3 Albumin 4.1 Globulin 3.0 Albumin/Globulin Ratio 1.0 Amylase Lipase Urine Source CLEAN CATCH Urine Color YELLOW Urine Clarity CLEAR Urine pH 5.0 Ur Specific [place] 1.020 Urine Protein TRACE A Urine Ketones TRACE Urine Blood 1+ A Urine Nitrite NEGATIVE Urine Bilirubin NEGATIVE Urine Urobilinogen NORMAL Urine Microscopic RBC <10 Urine WBC TRACE A Urine Microscopic WBC <10 Ur Epithelial Cells <10 Urine Glucose NEGATIVE Urine Opiates Screen NONE DETECTED Ur Oxycodone Screen NONE DETECTED Urine Methadone Screen NONE DETECTED Ur Barbituates Screen NONE DETECTED Ur Tricyclics Screen NONE DETECTED Ur Phencyclidine Scrn NONE DETECTED Ur Amphetamines Screen NONE DETECTED U Methamphetamines Scrn NONE DETECTED Urine MDMA Screen NONE DETECTED U Benzodiazepines Scrn NONE DETECTED Urine Cocaine Screen NONE DETECTED U Cannabinoids Screen NONE DETECTED Plasma/Serum Ethyl Alc 08/03/16 08/03/16 08/03/16 14:40 14:40 14:40 WBC 11.65 H RBC 4.99 Hgb 15.2 Hct 46.0 MCV 92.2 MCH 30.5 MCHC 33.0 RDW Std Deviation 13.9 Plt Count 359 MPV 9.9 Immature Gran % (Auto) 0.3 Neut % (Auto) 74.1 Lymph % (Auto) 14.8 L [place] % (Auto) 5.3 Eos % (Auto) 4.9 Baso % (Auto) 0.6 Immature Gran # (Auto) 0.03 Neut # (Auto) 8.64 H Lymph # (Auto) 1.72 [place] # (Auto) 0.62 H Eos # (Auto) 0.57 Baso # (Auto) 0.07 Sodium Potassium Chloride Carbon Dioxide Anion Gap BUN Creatinine Estimated GFR/1.73 m2 BUN/Creatinine Ratio Glucose Calculated Osmolality Calcium Total Bilirubin AST ALT Alkaline Phosphatase Total Protein Albumin Globulin Albumin/Globulin Ratio Amylase 333 H Lipase 434 H Urine Source Urine Color Urine Clarity Urine pH Ur Specific Mcclure Urine Protein Urine Ketones Urine Blood Urine Nitrite Urine Bilirubin Urine Urobilinogen Urine Microscopic RBC Urine WBC Urine Microscopic WBC Ur Epithelial Cells Urine Glucose Urine Opiates Screen Ur Oxycodone Screen Urine Methadone Screen Ur Barbituates Screen Ur Tricyclics Screen Ur Phencyclidine Scrn Ur Amphetamines Screen U Methamphetamines Scrn Urine MDMA Screen U Benzodiazepines Scrn Urine Cocaine Screen U Cannabinoids Screen Plasma/Serum Ethyl Alc <Gus Fagan - Last Filed: 08/03/16 17:06> - REASSESSMENT Reassessment #1 Time Reassessed: 17:00 Status: improving (pt plans to return home soon and has a doctor there who can prescribe his medication. he will leave his sister's after this cold snap is over. the [facility] has his w/u studies) <Christiano Simon - Last Filed: 08/03/16 17:13> Departure <Gus Fagan - Last Filed: 08/03/16 17:06> - Departure Time of Disposition Order: 17:05 Certified Medical Emergency: Emergent <Christiano Simon - Last Filed: 08/03/16 17:13> - Departure DIAGNOSIS: Pancreatitis Qualifiers: Chronicity: chronic Pancreatitis type: unspecified pancreatitis type Qualified Code(s): K86.1 - Other chronic pancreatitis Disposition: HOME 01 Condition: Stable Additional Instructions: fu with your doctor at home at the earliest convenience ED Follow Up Instructions: You have been treated by a care provider in the Emergency Department. These instructions are being provided to you so you can have an understanding of how to care for yourself upon discharge. Upon discharge from the Emergency Department, you are responsible for making arrangements for follow-up care by a physician of your choice. Take all prescribed medications as directed. Return to the Emergency Department immediately for any new or worsening symptoms. You may call the Physician Referral phone number at [phone] to obtain a list of Physicians who are taking new patients. Prescriptions: Hydrocodone/Acetaminophen [[place] 10-325 Tablet] 1 each PO Q12HR #60 tablet Referrals: None,PCP [Primary Care Provider] - Physician Attestation
[2016-08-03 14:43] LABS: URINE CULTURE PL NEEDED? NO
[2016-08-03 14:47] LABS: MANUAL DIFF NEEDED? NO
[2016-08-03 14:49] LABS: BASO% 0.6 % (0.0-0.8); EOS# 0.57 X1000 (0.0-0.7); EOS% 4.9 % (0.0-10.0); HEMOGLOBIN 15.2 g/dL (14.0-18.0); IMM GRAN# 0.03 X1000 (0.0-0.04); IMM GRAN% 0.3 % (0.0-0.5); LYMPH# 1.72 X1000 (1.2-3.4); LYMPH% 14.8 % (20.5-51.1); MCH 30.5 PG (27-31); MCV 92.2 FL (81-99); MONO# 0.62 X1000 (0.11-0.59); MONO% 5.3 % (1.7-9.3); MPV 9.9 FL (7.4-10.4); NEUT% 74.1 % (42.2-75.2); PLT 359 X1000 (130-400); RBC 4.99 XMIL (4.7-6.1)
[2016-08-03 14:55] LABS: UR AMPHETAMINES QUAL NONE DETECTED (NONE DETECT); UR BARBITUATES QUAL NONE DETECTED (NONE DETECT); UR BENZODIAZEPIN QUAL NONE DETECTED (NONE DETECT); UR CANNABINOIDS QUAL NONE DETECTED (NONE DETECT); UR COCAINE QUAL NONE DETECTED (NONE DETECT); UR MDMA QUAL NONE DETECTED (NONE DETECT); UR METHADONE QUAL NONE DETECTED (NONE DETECT); UR METHAMPHETAMINE QUAL NONE DETECTED (NONE DETECT); UR OPIATES QUAL NONE DETECTED (NONE DETECT); UR OXYCODONE QUAL NONE DETECTED (NONE DETECT); UR PCP QUAL NONE DETECTED (NONE DETECT); UR TCA QUAL NONE DETECTED (NONE DETECT)
[2016-08-03 14:56] LABS: BILIRUBIN URINE NEGATIVE (NEGATIVE); BLOOD URINE 1+ (NEGATIVE); CLARITY CLEAR (CLEAR); COLOR YELLOW; GLUCOSE URINE NEGATIVE (NEGATIVE); LEUKOCYTES URINE TRACE (NEGATIVE); NITRITE URINE NEGATIVE (NEGATIVE); PROTEIN URINE TRACE mg/dL (NEGATIVE); UROBILINOGEN URINE NORMAL
[2016-08-03 14:59] LABS: URINE RBC <10 /HPF (<10); URINE WBC <10 /HPF (<10)
[2016-08-03 15:00] LABS: URINE EPITHELIAL CELLS <10 /HPF (<10); URINE SOURCE CLEAN CATCH
[2016-08-03] MEDS ORDERED: NS 1,000 ML IV ONE (15:06)
[2016-08-03 15:12] LABS: AGAP 10; ALBUMIN 4.1 g/dL (3.5-5.0); ALKALINE PHOSPHATASE 72 U/L (32-122); BUN 9 mg/dL (8-22); CHLORIDE 101 mmol/L (98-107); COSMO 275; GOT 10 U/L (10-34); GPT 9 U/L (10-44); POTASSIUM 3.9 mmol/L (3.5-5.1); SODIUM 138 mmol/L (136-145); TCO2 27 mmol/L (25-35); TOTAL BILIRUBIN < 0.15 mg/dL (0.20-1.00); TOTAL PROTEIN 7.3 g/dL (6.3-8.3)
[2016-08-03 15:21] LABS: AMYLASE 333 U/L (20-200)
[2016-08-03 15:27] LABS: LIPASE 434 U/L (13-60)
[2016-08-03] MEDS ORDERED: SODIUM CHLORIDE 0.9% INJ ONE (15:55)
[2016-08-03] MEDS ORDERED: PHENERGAN IV ONE (15:55)
[2016-08-03] MEDS ORDERED: MORPHINE IM ONE (15:56)
[2016-08-03 17:24] VITALS: BP 139/89
== END 2016-08-03 18:04 | disposition home or self-care (01) ==
LOC: P.ED 13:53
DX: K86.1 Other chronic pancreatitis (principal); R10.9 Unspecified abdominal pain; F17.210 Nicotine dependence, cigarettes, uncomplicated; Z71.6 Tobacco abuse counseling; Z79.899 Other long term (current) drug therapy
CPT/HCPCS: 80053; 80305; 81001; 82150; 83690; 85025; 96361; 96372; 96374; G0480; J2270; J2550; J7030; 80320